=== PATIENT | male | born 2000 | race African-American/Black ===

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

== ENCOUNTER 2020-08-25 03:03 | Emergency (ER) | payer SELFPAY ==
[~2020-08-25] VITALS: Ht 185.4 cm; Wt 91.0 kg
[2020-08-25] MEDS ORDERED: ACETAMINOPHEN 325MG TABLET PO STA (04:07)
[2020-08-25] MEDS ORDERED: SODIUM CHLORIDE 0.9% 1,000 ML IV ONE (04:15)
[2020-08-25 04:33] LABS: HEMATOCRIT. 39.4 % (42.0-52.0); HEMOGLOBIN. 13.2 g/dL (14.0-18.0); MEAN CORPUSCULAR HEMOGLOBIN 31.2 pg (28.0-32.0); MEAN CORPUSCULAR VOLUME 93.3 fL (80.0-94.0); MEAN PLATELET VOLUME 7.9 fl (7.4-10.4); PLATELET 210 x1000/uL (130-400); RED BLOOD CELL COUNT 4.22 mill/uL (4.7-6.1); RED CELL DISTRIBUTION WIDTH 12.6 % (11.6-14.6)
[2020-08-25 04:40] LABS: CHLORIDE 106 mEq/L (98-107)
[2020-08-25 05:02] LABS: PLATELET ESTIMATE NORMAL
[2020-08-25] MEDS ORDERED: CEFTRIAXONE 1 G PREMIX 50 ML IV ONE (05:15)
[2020-08-25] MEDS ORDERED: DOXY100C2 MT (05:29)
[2020-08-25] MEDS ORDERED: TOPUD MT (05:29)
[2020-08-25 05:55] VITALS: BP 136/71
== END 2020-08-25 06:01 | disposition home or self-care (01) ==
LOC: ER 03:03
DX: J18.9 Pneumonia, unspecified organism (principal); R03.0 Elevated blood-pressure reading, without diagnosis of hypertension; Z20.822 Contact with and (suspected) exposure to COVID-19; Z85.6 Personal history of leukemia; Z91.010 Allergy to peanuts
CPT/HCPCS: 36415; 71045; 80053; 83605; 85025; 87040; 96361; 96365; 99284; C9803; J0696; J7030; U0003; U0005

== ENCOUNTER 2020-10-24 12:29 | Emergency (ER) | payer SELFPAY ==
[~2020-10-24] VITALS: Ht 185.4 cm; Wt 87.0 kg
[~2020-10-24 12:29] MED LIST: DOXY100C2 MT; TOPUD MT
[2020-10-24 12:39] VITALS: BP 138/70
[2020-10-24] MEDS ORDERED: IBUPROFEN 600MG TABLET PO STA (14:24)
[2020-10-24] MEDS ORDERED: IBUP-2029 PO (14:30)
[2020-10-24] MEDS ORDERED: CYCL5TAB PO (14:30)
== END 2020-10-24 14:47 | disposition home or self-care (01) ==
LOC: ER 12:29
DX: M54.2 Cervicalgia (principal); M43.6 Torticollis; F12.10 Cannabis abuse, uncomplicated
CPT/HCPCS: 99283

== ENCOUNTER 2021-07-24 18:42 | Emergency (ER) | payer MEDICAID ==
[~2021-07-24] VITALS: Ht 185.4 cm; Wt 96.0 kg
[~2021-07-24 18:42] MED LIST changes: +CYCL5TAB PO; -DOXY100C2 MT; +DOXY100C5 MT; +IBUP-2029 PO
[2021-07-24 18:59] VITALS: BP 137/62
[2021-07-24] MEDS ORDERED: DOXYCYCLINE HYCLATE 100MG CAPSULE PO ONE (20:45)
[2021-07-24] MEDS ORDERED: LIDOCAINE HCL 1% 20ML VIAL (Pyxis) INJ INFIL ONE (20:45)
[2021-07-24] MEDS ORDERED: CEFTRIAXONE SODIUM 500 MG/VIAL IM ONE (20:45)
[2021-07-24] MEDS ORDERED: NAPR-681 MT (21:30)
[2021-07-24] MEDS ORDERED: CYCL10TA7 MT (21:30)
[2021-07-24] MEDS ORDERED: DOXY100C5 MT (21:30)
== END 2021-07-25 03:26 | disposition home or self-care (01) ==
LOC: ER 18:42
DX: Z20.2 Contact with and (suspected) exposure to infections with a predominantly sexual mode of transmission (principal); M54.9 Dorsalgia, unspecified; Z91.010 Allergy to peanuts
CPT/HCPCS: 96372; 99283; J0696; J3490

== ENCOUNTER 2021-08-16 02:30 | Emergency (ER) | payer MEDICAID ==
[~2021-08-16] VITALS: Ht 185.4 cm; Wt 95.7 kg
[~2021-08-16 02:30] MED LIST changes: +CYCL10TA21 MT; +NAPR-681 MT
[2021-08-16 02:33] VITALS: BP 116/88
== END 2021-08-16 04:40 | disposition home or self-care (01) ==
LOC: ER 02:30
DX: T23.201A Burn of second degree of right hand, unspecified site, initial encounter (principal); T31.0 Burns involving less than 10% of body surface; X08.8XXA Exposure to other specified smoke, fire and flames, initial encounter; Y93.89 Activity, other specified; Y92.89 Other specified places as the place of occurrence of the external cause; Y99.8 Other external cause status; F12.10 Cannabis abuse, uncomplicated; Z79.899 Other long term (current) drug therapy
CPT/HCPCS: 99281

== ENCOUNTER 2021-09-04 17:52 | Emergency (ER) | payer MEDICAID | END 2021-09-04 19:05 | disposition left against medical advice (07) | LOC: ER 17:52 | DX: Z53.21 Procedure and treatment not carried out due to patient leaving prior to being seen by health care provider (principal) ==

== ENCOUNTER 2021-09-18 17:53 | Emergency (ER) | payer MEDICAID ==
[~2021-09-18] VITALS: Ht 177.8 cm; Wt 82.0 kg
[2021-09-18 18:13] VITALS: BP 125/107
== END 2021-09-18 23:13 | disposition left against medical advice (07) ==
LOC: ER 17:53
DX: Z53.21 Procedure and treatment not carried out due to patient leaving prior to being seen by health care provider (principal)
CPT/HCPCS: 82962